=== PATIENT | female | born 1955 | race American Indian/Alaskan Native ===

== ENCOUNTER 2016-06-25 10:51 | Outpatient (CLI) | payer OTHER ==
--- NOTE | 2016-06-25 13:02 | XRay Report ---
Lumbar spine 3 views: History: Lumbar pain. Findings: Mild scoliosis lumbar spine with convexity to right. Normal height of vertebral bodies and intravertebral disc. Normal articular surfaces. No fracture. No paravertebral mass. Impression: No bony or articular abnormality lumbar spine.
--- NOTE | 2016-06-25 13:04 | XRay Report ---
Bilateral shoulder: History: Shoulder pain. Findings: There is mild arthritic changes noted at the glenohumeral joint and a.c. joint bilaterally. No fracture dislocation or soft tissue calcification. 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
== END 2016-06-25 10:52 | disposition home or self-care (01) ==
LOC: XRAY 10:51
PROVIDERS: ATTEND Internal Medicine
DX: E11.9 Type 2 diabetes mellitus without complications (principal); I10 Essential (primary) hypertension; E78.00 Pure hypercholesterolemia, unspecified; M41.86 Other forms of scoliosis, lumbar region; H26.9 Unspecified cataract; M25.512 Pain in left shoulder; M25.511 Pain in right shoulder; R53.83 Other fatigue
CPT/HCPCS: 72100

== ENCOUNTER 2017-08-12 16:08 | Inpatient (IN) | payer BC, OTHER ==
[2017-08-12] MEDS ORDERED: ASPIRIN PO ONE (16:20)
[2017-08-12 16:39] LABS: Basophils % (Auto) 0.3 % (0.0-1.8); Hematocrit 32.8 % (30.3-42.9); Hemoglobin 10.9 gm/dl (10.1-14.3); Lymphocytes # (Auto) 1.5 K/mm3 (1.2-5.4); Lymphocytes % (Auto) 10.2 % (13.4-35.0); Mean Corpuscular HGB Conc 33 % (30-34); Mean Corpuscular Hemoglobin 29 pg (28-32); Mean Corpuscular Volume 86 fl (79-97); Monocytes # (Auto) 0.7 K/mm3 (0.0-0.8); Monocytes % (Auto) 4.8 % (0.0-7.3); Platelet Count 342 K/mm3 (140-440); Red Blood Count 3.81 M/mm3 (3.65-5.03); Red Cell Distribution Width 14.7 % (13.2-15.2)
[2017-08-12] MEDS ORDERED: ZOFRAN ODT ONE (16:39)
[2017-08-12] MEDS ORDERED: CATAPRES ONE (16:39)
[2017-08-12] MEDS ORDERED: CATAPRES PO ONE (16:41)
[2017-08-12] MEDS ORDERED: ZOFRAN ODT PO ONE (16:41)
[2017-08-12 16:48] LABS: Calcium 9.7 mg/dL (8.4-10.2)
[2017-08-12] MEDS ORDERED: MORPHINE IV ONE (18:28)
[2017-08-12] MEDS ORDERED: ZOFRAN IV ONE ×2 (18:28→19:58)
[2017-08-12] MEDS ORDERED: NITRO-BID 2% TP ONE (18:29)
[2017-08-12] MEDS ORDERED: CARDENE 50 MG in NACL 0.9% 250ML 230 ML IV SCH (19:30)
--- NOTE | 2017-08-12 19:43 | XRay Report ---
FINAL REPORT PROCEDURE: XR CHEST ROUTINE 2V TECHNIQUE: PA and lateral chest radiographs were obtained. CPT 42728 HISTORY: Chest pain. COMPARISON: No prior studies are available for comparison. FINDINGS: Heart: The heart size is top-normal. Mediastinum/Vessels: Aortic tortuosity. Lungs/Pleural space: Mild hyperinflation. Eventration of the medial right diaphragm. Bony thorax: Mild osteopenia with degenerative changes of the spine. Other: Cholecystectomy clips. IMPRESSION: Heart size top-normal. Aortic tortuosity. No radiographic evidence of acute cardiopulmonary disease. Hyperinflation suggests obstructive physiology.
--- NOTE | 2017-08-12 22:10 | Nuclear Medicine Report ---
FINAL REPORT PROCEDURE: NM LUNG SCAN PERF/VENT TECHNIQUE: 5.0 mCi Tc-99m MAA was injected IV for pulmonary perfusion imaging in multiple projections. 15.0 mCi Xe 133 gas was inhaled for pulmonary ventilation imaging in multiple projections. I HISTORY: CP elevated ddimer, renal failure COMPARISON: Chest x-ray August 12, 2017 FINDINGS: Perfusion: No defects . Ventilation: No defects . IMPRESSION: Normal Examination
[2017-08-12 22:29] LABS: Bacteria,Urine 1+ /HPF (Negative); Bilirubin,Urine NEG (Negative); Blood,Urine NEG (Negative); Color,Urine Red (Yellow); Mucus,Urine FEW /HPF; Triple Phosphate Crystal,Urine 1+; Urobilinogen,Urine < 2.0 mg/dL (<2.0)
--- NOTE | 2017-08-12 22:30 | Emergency Department Report ---
ED Chest Pain HPI - General Chief Complaint: Chest Pain Stated Complaint: CHEST PAIN Time Seen by Provider: 08/12/17 18:09 Source: patient Mode of arrival: Ambulatory Limitations: No Limitations - History of Present Illness Initial Comments: Patient is a 62-year-old [place] female who is presenting with chest pain. Patient states her upper sternal radiating into her neck has pressure has been present constantly for 2 days. Patient states there is nausea associated with this she's vomited multiple times with diaphoresis. Patient states that she has been out of her blood pressure medicines for several days. Patient denies any fever chills cough diarrhea. Patient has a history of diabetes hypertension as well as high cholesterol. Severity scale (0 -10): 8 Quality: tightness Improves With: nothing Worsens With: nothing re: nausea, vomting, diaphoresis, dyspnea Other Symptoms: denies: cough, fever, syncope, rash, acid taste in mouth, leg swelling, palpitations - Related Data Previous Rx's Medication Instructions Recorded Last Taken Type Atenolol [Tenormin] 25 mg PO DAILY #30 tablet 02/25/14 Unknown Rx Cyclobenzaprine [Flexeril 10 MG 10 mg PO TID PRN #30 tablet 02/25/14 Unknown Rx TAB] Ibuprofen [Motrin 600 MG tab] 600 mg PO Q8H PRN #30 tablet 02/25/14 Unknown Rx Lisinopril/Hydrochlorothiazide 1 tab PO QDAY #30 tablet 02/25/14 Unknown Rx [Zestoretic 20-25 mg] Metformin HCl [Fortamet ER] 1,000 mg PO QDAY #30 tab.er.24 02/25/14 Unknown Rx glyBURIDE [Diabeta] 5 mg PO BID #60 tablet 02/25/14 Unknown Rx Allergies Allergy/AdvReac Type Severity Reaction Status Date / Time No Known Allergies Allergy Verified 02/01/16 16:51 Heart Score - HEART Score History: Moderately suspicious EKG: Non-specific Age: 45-65 Risk factors: > 3 risk factors or hx of atherosclerotic disease Troponin: < normal limit HEART Score: 5 ED Review of Systems ROS: Stated complaint: CHEST PAIN Other details as noted in HPI Comment: All other systems reviewed and negative ED Past Medical Hx - Past Medical History Hx Hypertension: Yes Hx Diabetes: Yes Additional medical history: High cholesterol, Chronic back pain - Surgical History Hx Cholecystectomy: Yes - Social History Smoking Status: Never Smoker Substance Use Type: None - Medications Home Medications: Home Medications Medication Instructions Recorded Confirmed Last Taken Type Atenolol [Tenormin] 25 mg PO DAILY #30 tablet 02/25/14 Unknown Rx Cyclobenzaprine [Flexeril 10 MG 10 mg PO TID PRN #30 tablet 02/25/14 Unknown Rx TAB] Ibuprofen [Motrin 600 MG tab] 600 mg PO Q8H PRN #30 tablet 02/25/14 Unknown Rx Lisinopril/Hydrochlorothiazide 1 tab PO QDAY #30 tablet 02/25/14 Unknown Rx [Zestoretic 20-25 mg] Metformin HCl [Fortamet ER] 1,000 mg PO QDAY #30 tab.er.24 02/25/14 Unknown Rx glyBURIDE [Diabeta] 5 mg PO BID #60 tablet 02/25/14 Unknown Rx ED Physical Exam - General Limitations: No Limitations General appearance: alert, in distress - Head Head exam: Present: atraumatic, normocephalic - Eye Eye exam: Present: normal appearance - ENT ENT exam: Present: mucous membranes moist - Neck Neck exam: Present: normal inspection - Respiratory Respiratory exam: Present: normal lung sounds bilaterally. Absent: respiratory distress, wheezes, rales, rhonchi - Cardiovascular Cardiovascular Exam: Present: normal rhythm, tachycardia. Absent: systolic murmur, diastolic murmur, rubs, gallop - GI/Abdominal GI/Abdominal exam: Present: soft, normal bowel sounds. Absent: distended, tenderness, guarding, rebound - Extremities Exam Extremities exam: Present: normal inspection - Back Exam Back exam: Present: normal inspection - Neurological Exam Neurological exam: Present: alert, oriented X3 - Psychiatric Psychiatric exam: Present: normal affect, normal mood - Skin Skin exam: Present: warm, dry, intact, normal color. Absent: rash ED Course Vital Signs 08/12/17 08/12/17 08/12/17 16:17 16:56 19:08 Temperature 98.9 F Pulse Rate 130 H 130 H Respiratory 20 20 Rate Blood Pressure 212/117 212/117 O2 Sat by Pulse 98 Oximetry 08/12/17 19:14 Temperature Pulse Rate Respiratory 20 Rate Blood Pressure O2 Sat by Pulse 100 Oximetry HERRERA score - Herrera Score Age > 65: (0) No Aspirin use within the Past 7 Days: (0) No 3 or more CAD Risk Factors: (1) Yes 2 or more Angina events in past 24 hrs: (1) Yes Known CAD with more than 50% Stenosis: (0) No Elevated Cardiac Markers: (0) No ST Deviation Greater than 0.5mm: (0) No HERRERA Score: 2 ED Medical Decision Making - Lab Data Result diagrams: 08/12/17 16:23 08/12/17 16:23 Lab Results 08/12/17 08/12/17 08/12/17 Range/Units 16:23 16:23 16:23 WBC 14.2 H (4.5-11.0) K/mm3 RBC 3.81 (3.65-5.03) M/mm3 Hgb 10.9 (10.1-14.3) gm/dl Hct 32.8 (30.3-42.9) % MCV 86 (79-97) fl MCH 29 (28-32) pg MCHC 33 (30-34) % RDW 14.7 (13.2-15.2) % Plt Count 342 (140-440) K/mm3 Lymph % (Auto) 10.2 L (13.4-35.0) % [place] % (Auto) 4.8 (0.0-7.3) % Eos % (Auto) 0.0 (0.0-4.3) % Baso % (Auto) 0.3 (0.0-1.8) % Lymph # 1.5 (1.2-5.4) K/mm3 [place] # 0.7 (0.0-0.8) K/mm3 Eos # 0.0 (0.0-0.4) K/mm3 Baso # 0.0 (0.0-0.1) K/mm3 Seg Neutrophils % 84.7 H (40.0-70.0) % Seg Neutrophils # 12.0 H (1.8-7.7) K/mm3 D-Dimer (0-234) ng/mlDDU Sodium 140 (137-145) mmol/L Potassium 3.8 (3.6-5.0) mmol/L Chloride 94.6 L (98-107) mmol/L Carbon Dioxide 22 (22-30) mmol/L Anion Gap 27 mmol/L BUN 49 H (7-17) mg/dL Creatinine 2.3 H (0.7-1.2) mg/dL Estimated GFR 26 ml/min BUN/Creatinine Ratio 21 % Glucose 211 H (65-100) mg/dL POC Glucose (70-105) Calcium 9.7 (8.4-10.2) mg/dL Total Bilirubin 0.50 (0.1-1.2) mg/dL AST 16 (5-40) units/L ALT 9 (7-56) units/L Alkaline Phosphatase 81 (35-129) units/L Troponin T 0.025 (0.00-0.029) ng/mL NT-Pro-B Natriuret Pep (0-900) pg/mL Total Protein 8.5 H (6.3-8.2) g/dL Albumin 4.0 (3.9-5) g/dL Albumin/Globulin Ratio 0.9 % Lipase 26 (13-60) units/L Urine Bilirubin (Negative) Urine RBC (Auto) (0.0-6.0) /HPF U Epithel Cells (Auto) (0-13.0) /HPF 08/12/17 08/12/17 08/12/17 Range/Units 16:23 16:27 18:23 WBC (4.5-11.0) K/mm3 RBC (3.65-5.03) M/mm3 Hgb (10.1-14.3) gm/dl Hct (30.3-42.9) % MCV (79-97) fl MCH (28-32) pg MCHC (30-34) % RDW (13.2-15.2) % Plt Count (140-440) K/mm3 Lymph % (Auto) (13.4-35.0) % [place] % (Auto) (0.0-7.3) % Eos % (Auto) (0.0-4.3) % Baso % (Auto) (0.0-1.8) % Lymph # (1.2-5.4) K/mm3 [place] # (0.0-0.8) K/mm3 Eos # (0.0-0.4) K/mm3 Baso # (0.0-0.1) K/mm3 Seg Neutrophils % (40.0-70.0) % Seg Neutrophils # (1.8-7.7) K/mm3 D-Dimer 1523.90 H (0-234) ng/mlDDU Sodium (137-145) mmol/L Potassium (3.6-5.0) mmol/L Chloride (98-107) mmol/L Carbon Dioxide (22-30) mmol/L Anion Gap mmol/L BUN (7-17) mg/dL Creatinine (0.7-1.2) mg/dL Estimated GFR ml/min BUN/Creatinine Ratio % Glucose (65-100) mg/dL POC Glucose 199 H (70-105) Calcium (8.4-10.2) mg/dL Total Bilirubin (0.1-1.2) mg/dL AST (5-40) units/L ALT (7-56) units/L Alkaline Phosphatase (35-129) units/L Troponin T (0.00-0.029) ng/mL NT-Pro-B Natriuret Pep 1760 H (0-900) pg/mL Total Protein (6.3-8.2) g/dL Albumin (3.9-5) g/dL Albumin/Globulin Ratio % Lipase (13-60) units/L Urine Bilirubin (Negative) Urine RBC (Auto) (0.0-6.0) /HPF U Epithel Cells (Auto) (0-13.0) /HPF 08/12/17 08/12/17 Range/Units 19:12 22:00 WBC (4.5-11.0) K/mm3 RBC (3.65-5.03) M/mm3 Hgb (10.1-14.3) gm/dl Hct (30.3-42.9) % MCV (79-97) fl MCH (28-32) pg MCHC (30-34) % RDW (13.2-15.2) % Plt Count (140-440) K/mm3 Lymph % (Auto) (13.4-35.0) % [place] % (Auto) (0.0-7.3) % Eos % (Auto) (0.0-4.3) % Baso % (Auto) (0.0-1.8) % Lymph # (1.2-5.4) K/mm3 [place] # (0.0-0.8) K/mm3 Eos # (0.0-0.4) K/mm3 Baso # (0.0-0.1) K/mm3 Seg Neutrophils % (40.0-70.0) % Seg Neutrophils # (1.8-7.7) K/mm3 D-Dimer (0-234) ng/mlDDU Sodium (137-145) mmol/L Potassium (3.6-5.0) mmol/L Chloride (98-107) mmol/L Carbon Dioxide (22-30) mmol/L Anion Gap mmol/L BUN (7-17) mg/dL Creatinine (0.7-1.2) mg/dL Estimated GFR ml/min BUN/Creatinine Ratio % Glucose (65-100) mg/dL POC Glucose (70-105) Calcium (8.4-10.2) mg/dL Total Bilirubin (0.1-1.2) mg/dL AST (5-40) units/L ALT (7-56) units/L Alkaline Phosphatase (35-129) units/L Troponin T 0.023 (0.00-0.029) ng/mL NT-Pro-B Natriuret Pep (0-900) pg/mL Total Protein (6.3-8.2) g/dL Albumin (3.9-5) g/dL Albumin/Globulin Ratio % Lipase (13-60) units/L Urine Bilirubin Neg (Negative) Urine RBC (Auto) 2.0 (0.0-6.0) /HPF U Epithel Cells (Auto) < 1.0 (0-13.0) /HPF - EKG Data -: EKG Interpreted by Nh - EKG Data Interpretation: other (EKG shows sinus tachycardia 129 normal axis normal intervals no ST segment elevation or depressions there is evidence of LVH time of interpretation 1626) - Radiology Data Radiology results: report reviewed Chest x-ray shows no acute process patient's VQ scan shows low probability for PE - Medical Decision Making Patient is 62-year-old -[place] male female who is presenting with chest discomfort. Patient's pain was improved with morphine and Zofran and Nitropaste. Patient's blood pressure did drop significantly with the Cardene drip which was stopped. Patient's blood pressures at time of admission was 145 systolic. Patient states the nausea and the chest discomfort is improved but is still present and is around a 3 out of 10 in severity. Patient will be admitted to Dr. Penny with the hospitalist service. Critical Care Time: Yes Critical care time in (mins) excluding proc time.: 30 Critical care attestation.: If time is entered above; I have spent that time in minutes in the direct care of this critically ill patient, excluding procedure time. ED Disposition Clinical Impression: Hypertensive urgency, malignant Chest pain Qualifiers: Chest pain type: unspecified Qualified Code(s): R07.9 - Chest pain, unspecified Disposition: OP ADMIT IP TO THIS HOSP Is pt being admited?: Yes Does the pt Need Aspirin: No Condition: Stable Instructions: Chest Pain (ED) Referrals: PRIMARY CARE, [Primary Care Provider] - 3-5 Days
[2017-08-12 22:32] LABS: Protein,Urine >500 mg/dL (Negative)
--- NOTE | 2017-08-12 23:05 | History and Physical Report ---
History of Present Illness Date of examination: 08/12/17 History of present illness: 54-year-old lady with a history of hypertension, hyperlipidemia, diabetes comes emergency room with complaints of chest pain started yesterday. Pain started on the right side of the neck radiating down to the epigastric area, she describes as sharp, unable to say how long it lasted for, intensity 5/10. She state that pain is worse at rest, better with activity. Admits to nausea vomiting, no palpitation, shortness of breath, diaphoresis. She has not taken any medication in the last 3 days because she has been fasting Review of systems Constitutional: no weight loss, chills Ears, eyes, nose, mouth and throat: no nasal congestion, no nasal discharge, no sinus pressure, no vision change, no red eye. Neck: No neck pain or rigidity. Cardiovascular: no palpitations Respiratory: No cough, shortness of breath Gastrointestinal: no abdominal pain, hematochezia Genitourinary : no dysuria, frequency , no hematuria Musculoskeletal: no joint swelling or muscle ache Integumentary: no rash, no pruritis Neurological: no parathesias, no numbness, no focal weakness Endocrine: no cold or heat intolerance, no polyuria or polydipsia Hematologic/Lymphatic: no easy bruising, no easy bleeding, no gland swelling Allergic/Immunologic: no urticaria, no angioedema. PAST MEDICAL HISTORY: Hypertension, hyperlipidemia PAST SURGICAL HISTORY: Hysterectomy, hemorrhoidectomy SOCIAL HISTORY: Denies alcohol, tobacco, drugs FAMILY HISTORY: Hypertension Medications and Allergies Allergies Allergy/AdvReac Type Severity Reaction Status Date / Time No Known Allergies Allergy Verified 02/01/16 16:51 Home Medications Medication Instructions Recorded Confirmed Last Taken Type Atenolol [Tenormin] 25 mg PO DAILY #30 tablet 02/25/14 Unknown Rx Cyclobenzaprine [Flexeril 10 MG 10 mg PO TID PRN #30 tablet 02/25/14 Unknown Rx TAB] Ibuprofen [Motrin 600 MG tab] 600 mg PO Q8H PRN #30 tablet 02/25/14 Unknown Rx Lisinopril/Hydrochlorothiazide 1 tab PO QDAY #30 tablet 02/25/14 Unknown Rx [Zestoretic 20-25 mg] Metformin HCl [Fortamet ER] 1,000 mg PO QDAY #30 tab.er.24 09/25/14 Unknown Rx glyBURIDE [Diabeta] 5 mg PO BID #60 tablet 02/25/14 Unknown Rx Active Meds: Active Medications Nicardipine HCl 50 mg/ Sodium (Chloride) 250 mls @ 25 mls/hr IV TITR CASSIUS; Protocol Last Titration: 08/12/17 20:40 Dose: 0 mg/hr, 0 mls/hr Exam - Physical Exam Narrative exam: Gen. appearance: Patient lying in bed, no apparent distress HEENT: Normocephalic, atraumatic, pupils equally round and reactive to light, extraocular movement intact, and no sclericterus,. No JVD or thyromegaly or nodule,neck supple, no carotid bruit ,mucous membranes moist, no exudate or erythema Heart: S1, S2, regular rate and rhythm Lungs: Clear to auscultation bilaterally, breathing comfortable Abdomen: Positive bowel sounds, nontender, nondistended, no organomegaly Extremity: No edema, cyanosis, clubbing Skin: No rash, nodules, warm, dry Neuro: Oriented 3, cranial nerves II-12 intact, speech is fluent, motor and sensory intact - Constitutional Vitals: Temp Pulse Resp BP Pulse Ox 98.9 F 130 H 20 212/117 100 08/12/17 16:17 08/12/17 16:56 08/12/17 19:14 08/12/17 16:56 08/12/17 19:14 Results - Labs CBC & Chem 7: 08/12/17 16:23 08/12/17 16:23 Labs: Abnormal lab results 08/12/17 08/12/17 08/12/17 Range/Units 16:23 16:23 16:23 WBC 14.2 H (4.5-11.0) K/mm3 Lymph % (Auto) 10.2 L (13.4-35.0) % Seg Neutrophils % 84.7 H (40.0-70.0) % Seg Neutrophils # 12.0 H (1.8-7.7) K/mm3 D-Dimer (0-234) ng/mlDDU Chloride 94.6 L (98-107) mmol/L BUN 49 H (7-17) mg/dL Creatinine 2.3 H (0.7-1.2) mg/dL Glucose 211 H (65-100) mg/dL POC Glucose (70-105) NT-Pro-B Natriuret Pep 1760 H (0-900) pg/mL Total Protein 8.5 H (6.3-8.2) g/dL Urine pH (5.0-7.0) 08/12/17 08/12/17 08/12/17 Range/Units 16:27 18:23 22:00 WBC (4.5-11.0) K/mm3 Lymph % (Auto) (13.4-35.0) % Seg Neutrophils % (40.0-70.0) % Seg Neutrophils # (1.8-7.7) K/mm3 D-Dimer 1523.90 H (0-234) ng/mlDDU Chloride (98-107) mmol/L BUN (7-17) mg/dL Creatinine (0.7-1.2) mg/dL Glucose (65-100) mg/dL POC Glucose 199 H (70-105) NT-Pro-B Natriuret Pep (0-900) pg/mL Total Protein (6.3-8.2) g/dL Urine pH 8.0 H (5.0-7.0) - Imaging and Cardiology EKG: image reviewed Chest x-ray: image reviewed Assessment and Plan VQ negative for pulmonary emboli Assessment Hypertensive urgency Chest pain Renal failure, unclear if there is an acute component Hyperlipidemia Diabetes type 2 Plan Admit to medicine Check cardic enzymes, stress test IV hydralazine, morphine, DVT prophylaxis Hold lisinopril, hydrochlorothiazide, start IV fluids Check fingersticks and initiate insulin sliding scale
[2017-08-12] MEDS ORDERED: ZOFRAN IV PRN (23:07)
[2017-08-12] MEDS ORDERED: TYLENOL PO PRN (23:07)
[2017-08-12] MEDS ORDERED: SODIUM CHLORIDE FLUSH SYRINGE 10 ML IV PRN (23:07)
[2017-08-12] MEDS ORDERED: NACL 0.45% 1000 ML 1,000 ML IV SCH (23:45)
[2017-08-12 23:59] LABS: Creatine Kinase MB 2.1 ng/mL (0.0-4.0)
[2017-08-13] MEDS ORDERED: ZOFRAN ONE (00:11)
[2017-08-13] MEDS ORDERED: MORPHINE ONE (00:15)
[2017-08-13] MEDS: MORPHINE IV PRN ×3 (00:18→19:42)
[2017-08-13] MEDS ORDERED: D50W (25GM) Syringe IV PRN ×2 (01:04→16:42)
[2017-08-13 05:41] LABS: Basophils # (Auto) 0.1 K/mm3 (0.0-0.1); Basophils % (Auto) 0.6 % (0.0-1.8); Hematocrit 29.9 % (30.3-42.9); Hemoglobin 9.8 gm/dl (10.1-14.3); Lymphocytes # (Auto) 1.5 K/mm3 (1.2-5.4); Lymphocytes % (Auto) 10.9 % (13.4-35.0); Mean Corpuscular HGB Conc 33 % (30-34); Mean Corpuscular Hemoglobin 28 pg (28-32); Mean Corpuscular Volume 86 fl (79-97); Monocytes # (Auto) 0.9 K/mm3 (0.0-0.8); Monocytes % (Auto) 6.5 % (0.0-7.3); Platelet Count 293 K/mm3 (140-440); Red Cell Distribution Width 14.6 % (13.2-15.2)
[2017-08-13 05:58] LABS: Calcium 9.2 mg/dL (8.4-10.2)
[2017-08-13 06:04] LABS: Creatine Kinase MB 1.8 ng/mL (0.0-4.0)
[2017-08-13 06:48] LABS: Chol/HDL Ratio 4.9 %
[2017-08-13] MEDS ORDERED: DIABETA PO SCH (08:00)
[2017-08-13] MEDS: HumaLOG SUB-Q SCH ×4 (08:00→22:40)
[2017-08-13] MEDS: LOVENOX SUB-Q SCH (11:41)
[2017-08-13] MEDS: TENORMIN PO SCH (11:41)
[2017-08-13] MEDS: APRESOLINE IV PRN (16:31)
[2017-08-13] MEDS: ZOFRAN IV PRN ×2 (16:31→22:38)
[2017-08-13] MEDS: PROTONIX IV SCH (19:42)
[2017-08-13] MEDS: LANTUS SUB-Q SCH (22:38)
[2017-08-13] MEDS: SODIUM CHLORIDE FLUSH SYRINGE 10 ML IV SCH ×2 (22:39→22:40)
--- NOTE | 2017-08-13 23:14 | XRay Report ---
FINAL REPORT PROCEDURE: XR ABDOMEN 1V AP TECHNIQUE: Abdominal radiograph, single supine AP view. HISTORY: gastroenteritis, ?sbo COMPARISON: No prior studies are available for comparison. FINDINGS: Bowel gas pattern:Nonobstructive. Masses or calcifications:There is previous cholecystectomy. Bony structures:No significant abnormality. Other:None. IMPRESSION: No acute abnormality
[2017-08-13 23:23] LABS: Bacteria,Urine 3+ /HPF (Negative); Bilirubin,Urine NEG (Negative); Blood,Urine NEG (Negative); Color,Urine Red (Yellow); Mucus,Urine 1+ /HPF; Urobilinogen,Urine < 2.0 mg/dL (<2.0)
[2017-08-13 23:29] LABS: Creatinine,Urine 142.1 mg/dL (0.1-20.0)
--- NOTE | 2017-08-14 05:22 | Progress Note ---
Assessment and Plan Assessment and plan: 54-year-old lady with a history of hypertension, hyperlipidemia, diabetes comes emergency room with complaints of chest pain started yesterday. Pain started on the right side of the neck radiating down to the epigastric area, she describes as sharp, unable to say how long it lasted for, intensity 5/10. She state that pain is worse at rest, better with activity. Admits to nausea vomiting, no palpitation, shortness of breath, diaphoresis. She has not taken any medication in the last 3 days because she has been fasting Hypertensive urgency * Improving, CONTINUE CURRENT THERAPY Gastroenteritis with Persistent nausea and vomiting * GI consult, Antiemetic, PPI Chest pain * Secondary to GERD, likely as a result of persistent vomiting, await cardiac work up. will start PPI via IV Andrey * Likely secondary to vasomotor nephropathy Hyperlipidemia * Statin Therapy Hypokalemia * Replace Diabetes type 2 * Insulin slidding scale DVT/GI prophy Plan discussed with the patient in detail History Interval history: Patient seen and examined, remained very nauseous with peristent vomiting. Reports ongoing vomiting since saturday prior to admission and a burning sensation in the epigastric region Hospitalist Physical - Physical exam Narrative exam: Narrative exam: Gen. appearance: Patient lying in bed, no apparent distress but uncomfortable appearing HEENT: Normocephalic, atraumatic, pupils equally round and reactive to light, extraocular movement intact, and no sclericterus,. No JVD or thyromegaly or nodule,neck supple, no carotid bruit ,mucous membranes moist, no exudate or erythema Heart: S1, S2, regular rate and rhythm Lungs: Clear to auscultation bilaterally, breathing comfortable Abdomen: Positive bowel sounds, nontender, nondistended, no organomegaly Extremity: No edema, cyanosis, clubbing Skin: No rash, nodules, warm, dry Neuro: Oriented 3, cranial nerves II-12 intact, speech is fluent, motor and sensory intact - Constitutional Vitals: Temp Pulse Resp BP Pulse Ox 98.7 F 95 H 16 134/86 98 08/14/17 00:00 08/14/17 00:00 08/14/17 00:00 08/14/17 00:06 08/14/17 00:00 Results - Labs CBC & Chem 7: 08/14/17 13:22 08/14/17 13:22 Labs: Laboratory Last Values WBC 13.6 K/mm3 (4.5-11.0) H 08/13/17 05:25 RBC 3.50 M/mm3 (3.65-5.03) L 08/13/17 05:25 Hgb 9.8 gm/dl (10.1-14.3) L 08/13/17 05:25 Hct 29.9 % (30.3-42.9) L 08/13/17 05:25 MCV 86 fl (79-97) 08/13/17 05:25 MCH 28 pg (28-32) 08/13/17 05:25 MCHC 33 % (30-34) 08/13/17 05:25 RDW 14.6 % (13.2-15.2) 08/13/17 05:25 Plt Count 293 K/mm3 (140-440) 08/13/17 05:25 Lymph % (Auto) 10.9 % (13.4-35.0) L 08/13/17 05:25 [place] % (Auto) 6.5 % (0.0-7.3) 08/13/17 05:25 Eos % (Auto) 0.0 % (0.0-4.3) 08/13/17 05:25 Baso % (Auto) 0.6 % (0.0-1.8) 08/13/17 05:25 Lymph # 1.5 K/mm3 (1.2-5.4) 08/13/17 05:25 [place] # 0.9 K/mm3 (0.0-0.8) H 08/13/17 05:25 Eos # 0.0 K/mm3 (0.0-0.4) 08/13/17 05:25 Baso # 0.1 K/mm3 (0.0-0.1) 08/13/17 05:25 Seg Neutrophils % 82.0 % (40.0-70.0) H 08/13/17 05:25 Seg Neutrophils # 11.1 K/mm3 (1.8-7.7) H 08/13/17 05:25 D-Dimer 1523.90 ng/mlDDU (0-234) H 08/12/17 18:23 Sodium 143 mmol/L (137-145) 08/13/17 05:25 Potassium 3.5 mmol/L (3.6-5.0) L 08/13/17 05:25 Chloride 100.7 mmol/L (98-107) 08/13/17 05:25 Carbon Dioxide 26 mmol/L (22-30) 08/13/17 05:25 Anion Gap 20 mmol/L 08/13/17 05:25 BUN 55 mg/dL (7-17) H 08/13/17 05:25 Creatinine 2.5 mg/dL (0.7-1.2) H 08/13/17 05:25 Estimated GFR 24 ml/min 08/13/17 05:25 BUN/Creatinine Ratio 22 % 08/13/17 05:25 Glucose 164 mg/dL (65-100) H 08/13/17 05:25 POC Glucose 146 (70-105) H 08/13/17 21:56 Calcium 9.2 mg/dL (8.4-10.2) 08/13/17 05:25 Total Bilirubin 0.50 mg/dL (0.1-1.2) 08/12/17 16:23 AST 16 units/L (5-40) 08/12/17 16:23 ALT 9 units/L (7-56) 08/12/17 16:23 Alkaline Phosphatase 81 units/L (35-129) 08/12/17 16:23 Total Creatine Kinase 138 units/L (30-135) H 08/13/17 05:25 CK-MB (CK-2) 1.8 ng/mL (0.0-4.0) 08/13/17 05:25 CK-MB (CK-2) Rel Index 1.3 (0-4) 08/13/17 05:25 Troponin T 0.031 ng/mL (0.00-0.029) H 08/13/17 05:25 NT-Pro-B Natriuret Pep 1760 pg/mL (0-900) H 08/12/17 16:23 Total Protein 8.5 g/dL (6.3-8.2) H 08/12/17 16:23 Albumin 4.0 g/dL (3.9-5) 08/12/17 16:23 Albumin/Globulin Ratio 0.9 % 08/12/17 16:23 Triglycerides 124 mg/dL (2-149) 08/13/17 05:25 Cholesterol 250 mg/dL (50-199) H 08/13/17 05:25 LDL Cholesterol Direct 173 mg/dL (50-130) H 08/13/17 05:25 HDL Cholesterol 51 mg/dL (40-59) 08/13/17 05:25 Cholesterol/HDL Ratio 4.90 % 08/13/17 05:25 Lipase 26 units/L (13-60) 08/12/17 16:23 Urine Color Red (Yellow) 08/13/17 23:00 Urine Turbidity Cloudy (Clear) 08/13/17 23:00 Urine pH 6.0 (5.0-7.0) 08/13/17 23:00 Ur Specific [place] 1.015 (1.003-1.030) 08/13/17 23:00 Urine Protein 100 mg/dl mg/dL (Negative) 08/13/17 23:00 Urine Glucose (UA) Neg mg/dL (Negative) 08/13/17 23:00 Urine Ketones Neg mg/dL (Negative) 08/13/17 23:00 Urine Blood Neg (Negative) 08/13/17 23:00 Urine Nitrite Neg (Negative) 08/13/17 23:00 Urine Bilirubin Neg (Negative) 08/13/17 23:00 Urine Urobilinogen < 2.0 mg/dL (<2.0) 08/13/17 23:00 Ur Leukocyte Esterase Mod (Negative) 08/13/17 23:00 Urine WBC (Auto) 24.0 /HPF (0.0-6.0) H 08/13/17 23:00 Urine RBC (Auto) 1.0 /HPF (0.0-6.0) 08/13/17 23:00 U Epithel Cells (Auto) 6.0 /HPF (0-13.0) 08/13/17 23:00 Urine Bacteria (Auto) 3+ /HPF (Negative) 08/13/17 23:00 Triple Phos Crystals 1+ 08/12/17 22:00 Urine Mucus 1+ /HPF 08/13/17 23:00 Urine Creatinine 142.1 mg/dL (0.1-20.0) H 08/13/17 23:00 Urine Sodium 15 mmol/L 08/13/17 23:00 Urine Total Protein 314 mg/dL (5-11.8) H 08/13/17 23:00
[2017-08-14] MEDS: HumaLOG SUB-Q SCH ×5 (07:30→21:38)
[2017-08-14] MEDS: ZOFRAN IV PRN (08:19)
--- NOTE | 2017-08-14 09:44 | Consultation ---
History of Present Illness - History of Present Illness Thank you for the consultation patient was evaluated today patient has been followed by Dr. Rivera never told to have any kidney disease My assessment and plan are as follows Renal failure moderate severity creatinine between 2.3-2.5 noted this admission , patient has multiple risk factors for underlying chronic kidney disease, patient to some degree appears to be prerenal she was also taking ibuprofen and lisinopril hydrochlorothiazide in outpatient setting, his hydration and close follow-up, she does have long-standing history of diabetes hypertension 15 years each with being overweight chronic NSAID use, I would not be surprised if she has underlying chronic kidney disease Will await the results of ultrasonogram counseling and education has been done regarding the severity of renal dysfunction. Agree with IV fluid normal saline at 1 25 mL an hour to follow, Patient was also having nausea and vomiting poor appetite, would be due to non- steroidal drug that she was taking She may have a competent of reversibility to monitor and follow Admitted with chest pain currently undergoing workup, this could be due to non- astride of drugs and reflux Hypokalemia noted 3.5 this admission, replace monitor and follow check migration as well, makes me worry about secondary hypertension here Will check abdelrahman and plasma renin level Hypertension: Currently well controlled between 115 to 134 systolic Proteinuria needs estimation rule out urinary tract infection current protein creatinine ratio suggestive off 2-1/2 g of protein in the urine, will definitely need to rule out infection first Hyperlipidemia current lipid profile shows a cholesterol of 250 LDL of 173 patient needs treatment change in diet lifestyle etc. Renal prognosis currently remains guarded upon discharge will need to follow-up in the office Order workup for renal failure including serologies labs ultrasonogram etc. We'll continue to follow and make recommendation from renal standpoint Medications and Allergies Allergies Allergy/AdvReac Type Severity Reaction Status Date / Time No Known Allergies Allergy Verified 02/01/16 16:51 Home Medications Medication Instructions Recorded Confirmed Last Taken Type Atenolol [Tenormin] 25 mg PO DAILY #30 tablet 02/25/14 Unknown Rx Cyclobenzaprine [Flexeril 10 MG 10 mg PO TID PRN #30 tablet 02/25/14 Unknown Rx TAB] Ibuprofen [Motrin 600 MG tab] 600 mg PO Q8H PRN #30 tablet 02/25/14 Unknown Rx Lisinopril/Hydrochlorothiazide 1 tab PO QDAY #30 tablet 02/25/14 Unknown Rx [Zestoretic 20-25 mg] Metformin HCl [Fortamet ER] 1,000 mg PO QDAY #30 tab.er.24 02/25/14 Unknown Rx glyBURIDE [Diabeta] 5 mg PO BID #60 tablet 02/25/14 Unknown Rx Active Meds: Active Medications Acetaminophen (Tylenol) 650 mg PO Q4H PRN PRN Reason: Pain MILD(1-3)/Fever >100.5/SEVERINO Atenolol (Tenormin) 25 mg PO DAILY COUNTS INCLUDE 234 BEDS AT THE [facility] Last Admin: 08/13/17 11:41 Dose: 25 mg Dextrose (D50w (25gm) Syringe) 50 ml IV PRN PRN PRN Reason: Hypoglycemia Dextrose (D50w (25gm) Syringe) 50 ml IV PRN PRN PRN Reason: Hypoglycemia Enoxaparin Sodium (Lovenox) 30 mg SUB-Q QDAY COUNTS INCLUDE 234 BEDS AT THE [facility] Last Admin: 08/13/17 11:41 Dose: 30 mg Hydralazine HCl (Apresoline) 5 mg IV Q6H PRN PRN Reason: Hypertension Last Admin: 08/13/17 16:31 Dose: 5 mg Sodium Chloride (Nacl 0.45% 1000 Ml) 1,000 mls @ 75 mls/hr IV DIRECT [place] Sodium Chloride (Nacl 0.9% 1000 Ml) 1,000 mls @ 125 mls/hr IV DIRECT COUNTS INCLUDE 234 BEDS AT THE [facility] Insulin Glargine (Lantus) 12 units SUB-Q QHS COUNTS INCLUDE 234 BEDS AT THE [facility] Last Admin: 08/13/17 22:38 Dose: 12 units Insulin Human Lispro (Humalog) 0 unit SUB-Q ACHS COUNTS INCLUDE 234 BEDS AT THE [facility]; Protocol Last Admin: 08/14/17 08:21 Dose: Not Given Morphine Sulfate (Morphine) 2 mg IV Q4H PRN PRN Reason: Pain, Moderate (4-6) Last Admin: 08/13/17 19:42 Dose: 2 mg Ondansetron HCl (Zofran) 4 mg IV Q4H PRN PRN Reason: Nausea And Vomiting Last Admin: 08/14/17 08:19 Dose: 4 mg Pantoprazole Sodium (Protonix) 40 mg IV QDAY COUNTS INCLUDE 234 BEDS AT THE [facility] Last Admin: 08/13/17 19:42 Dose: 40 mg Sodium Chloride (Sodium Chloride Flush Syringe 10 Ml) 10 ml IV BID COUNTS INCLUDE 234 BEDS AT THE [facility] Last Admin: 08/13/17 22:40 Dose: Not Given Sodium Chloride (Sodium Chloride Flush Syringe 10 Ml) 10 ml IV PRN PRN PRN Reason: LINE FLUSH Exam - Vital Signs Vital signs: Vital Signs Temp Pulse Resp BP Pulse Ox 98.9 F 130 H 20 212/117 98 08/12/17 16:17 08/12/17 16:17 08/12/17 16:17 08/12/17 16:17 08/12/17 16:17 Results - Lab Results 08/14/17 13:22 08/14/17 13:22 Most recent lab results Calcium 9.2 mg/dL (8.4-10.2) 08/13/17 05:25 Urine Creatinine 142.1 mg/dL (0.1-20.0) H 08/13/17 23:00 Urine Sodium 15 mmol/L 08/13/17 23:00 Urine Total Protein 314 mg/dL (5-11.8) H 08/13/17 23:00
[2017-08-14] MEDS: SODIUM CHLORIDE FLUSH SYRINGE 10 ML IV SCH ×2 (10:00→21:37)
[2017-08-14] MEDS: PROTONIX IV SCH (10:00)
[2017-08-14] MEDS: LOVENOX SUB-Q SCH ×2 (10:00→16:15)
--- NOTE | 2017-08-14 10:29 | Gastroenterology Consultation ---
<BEAR DE LA CRUZ - Last Filed: 08/14/17 10:38> History of Present Illness - Reason for Consult Consult date: 08/14/17 gastroenteritis with intractable N/V Requesting physician: LUIZ HAMMOND - History of Present Illness Patient is a 54 y/o female with PMH of HTN, HLD, and DM who presented to ED with c/o CP that radiates from her neck down to epigastric area with associated N/V x 3 days. VQ scan negative for PE. Stress test pending for today. This morning pt was resting in bed w/o acute distress. She reports continued mild CP and N/V x 2 episodes this am with non-bloody emesis. States epigastric pain has now improved. Denies fever, wt loss, SOB, heartburn, dysphagia, odynophagia, diarrhea, constipation, or signs of bleeding such as hematemesis, melena, or hematochezia. No hx of PUD. Takes occasional Ibuprofen at home. No previous EGD. Past History Past Medical History: diabetes, hypertension, hyperlipidemia Past Surgical History: hysterectomy, Other (hemorrhoidectomy) Social history: denies: smoking, alcohol abuse Family history: hypertension Medications and Allergies Allergies Allergy/AdvReac Type Severity Reaction Status Date / Time No Known Allergies Allergy Verified 02/01/16 16:51 Home Medications Medication Instructions Recorded Confirmed Last Taken Type Atenolol [Tenormin] 25 mg PO DAILY #30 tablet 02/25/14 Unknown Rx Cyclobenzaprine [Flexeril 10 MG 10 mg PO TID PRN #30 tablet 02/25/14 Unknown Rx TAB] Ibuprofen [Motrin 600 MG tab] 600 mg PO Q8H PRN #30 tablet 02/25/14 Unknown Rx Lisinopril/Hydrochlorothiazide 1 tab PO QDAY #30 tablet 02/25/14 Unknown Rx [Zestoretic 20-25 mg] Metformin HCl [Fortamet ER] 1,000 mg PO QDAY #30 tab.er.24 02/25/14 Unknown Rx glyBURIDE [Diabeta] 5 mg PO BID #60 tablet 02/25/14 Unknown Rx Active Meds: Active Medications Acetaminophen (Tylenol) 650 mg PO Q4H PRN PRN Reason: Pain MILD(1-3)/Fever >100.5/SEVERINO Atenolol (Tenormin) 25 mg PO DAILY [facility] Last Admin: 08/13/17 11:41 Dose: 25 mg Dextrose (D50w (25gm) Syringe) 50 ml IV PRN PRN PRN Reason: Hypoglycemia Dextrose (D50w (25gm) Syringe) 50 ml IV PRN PRN PRN Reason: Hypoglycemia Enoxaparin Sodium (Lovenox) 30 mg SUB-Q QDAY [facility] Last Admin: 08/13/17 11:41 Dose: 30 mg Hydralazine HCl (Apresoline) 5 mg IV Q6H PRN PRN Reason: Hypertension Last Admin: 08/13/17 16:31 Dose: 5 mg Sodium Chloride (Nacl 0.45% 1000 Ml) 1,000 mls @ 75 mls/hr IV DIRECT [place]SI[place] Sodium Chloride (Nacl 0.9% 1000 Ml) 1,000 mls @ 125 mls/hr IV DIRECT [facility] Insulin Glargine (Lantus) 12 units SUB-Q QHS [facility] Last Admin: 08/13/17 22:38 Dose: 12 units Insulin Human Lispro (Humalog) 0 unit SUB-Q ACHS [facility]; Protocol Last Admin: 08/14/17 08:21 Dose: Not Given Morphine Sulfate (Morphine) 2 mg IV Q4H PRN PRN Reason: Pain, Moderate (4-6) Last Admin: 08/13/17 19:42 Dose: 2 mg Ondansetron HCl (Zofran) 4 mg IV Q4H PRN PRN Reason: Nausea And Vomiting Last Admin: 08/14/17 08:19 Dose: 4 mg Pantoprazole Sodium (Protonix) 40 mg IV QDAY [facility] Last Admin: 08/13/17 19:42 Dose: 40 mg Sodium Chloride (Sodium Chloride Flush Syringe 10 Ml) 10 ml IV BID [facility] Last Admin: 08/13/17 22:40 Dose: Not Given Sodium Chloride (Sodium Chloride Flush Syringe 10 Ml) 10 ml IV PRN PRN PRN Reason: LINE FLUSH Review of Systems - Review of Systems All systems: negative Cardiovascular: chest pain Gastrointestinal: nausea, vomiting Exam - Constitutional Vital Signs: Temp Pulse Resp BP Pulse Ox 98.7 F 78 20 117/75 96 08/14/17 07:32 08/14/17 07:32 08/14/17 07:32 08/14/17 07:32 08/14/17 07:32 General appearance: no acute distress, well-nourished - EENT Eyes: PERRL, EOM intact ENT: hearing intact - Respiratory Respiratory: bilateral: CTA - Cardiovascular Rhythm: regular Heart Sounds: Present: S1 & S2 - Gastrointestinal General gastrointestinal: Present: soft, non-tender, non-distended, normal bowel sounds - Neurologic Neurological: alert and oriented x3 - Labs CBC & Chem 7: 08/13/17 05:25 08/13/17 05:25 Lab Results: Laboratory Results - last 24 hr 08/13/17 08/13/17 08/13/17 11:02 15:38 21:56 POC Glucose 156 H 158 H 146 H Urine Color Urine Turbidity Urine pH Ur Specific [place] Urine Protein Urine Glucose (UA) Urine Ketones Urine Blood Urine Nitrite Urine Bilirubin Urine Urobilinogen Ur Leukocyte Esterase Urine WBC (Auto) Urine RBC (Auto) U Epithel Cells (Auto) Urine Bacteria (Auto) Urine Mucus Urine Creatinine Urine Sodium Urine Total Protein 08/13/17 08/13/17 08/14/17 23:00 23:00 06:28 POC Glucose 105 Urine Color Red Urine Turbidity Cloudy Urine pH 6.0 Ur Specific [place] 1.015 Urine Protein 100 mg/dl Urine Glucose (UA) Neg Urine Ketones Neg Urine Blood Neg Urine Nitrite Neg Urine Bilirubin Neg Urine Urobilinogen < 2.0 Ur Leukocyte Esterase Mod Urine WBC (Auto) 24.0 H Urine RBC (Auto) 1.0 U Epithel Cells (Auto) 6.0 Urine Bacteria (Auto) 3+ Urine Mucus 1+ Urine Creatinine 142.1 H Urine Sodium 15 Urine Total Protein 314 H Assessment and Plan 1.intractable N/V 2.epigastric pain 3.CP -VQ negative for PE -abd x-ray negative -Tropoin trending up -stress test pending for today -clinically pt with continued N/V this am but reports epigastric pain has improved -recommend conservative management at this time, will consider EGD based on progress and cardiac evaluation results -continue PPI and supportive care -will follow <QUINTON SMALLS - Last Filed: 08/14/17 18:50> Medications and Allergies Active Meds: Active Medications Acetaminophen (Tylenol) 650 mg PO Q4H PRN PRN Reason: Pain MILD(1-3)/Fever >100.5/SEVERINO Atenolol (Tenormin) 25 mg PO DAILY [facility] Last Admin: 08/14/17 16:15 Dose: 25 mg Dextrose (D50w (25gm) Syringe) 50 ml IV PRN PRN PRN Reason: Hypoglycemia Enoxaparin Sodium (Lovenox) 30 mg SUB-Q QDAY [facility] Last Admin: 08/14/17 16:15 Dose: 30 mg Hydralazine HCl (Apresoline) 5 mg IV Q6H PRN PRN Reason: Hypertension Last Admin: 08/14/17 16:10 Dose: 5 mg Sodium Chloride (Nacl 0.9% 1000 Ml) 1,000 mls @ 125 mls/hr IV DIRECT [facility] Last Admin: 08/14/17 16:18 Dose: 125 mls/hr Insulin Glargine (Lantus) 12 units SUB-Q QHS [facility] Last Admin: 08/13/17 22:38 Dose: 12 units Insulin Human Lispro (Humalog) 0 unit SUB-Q ACHS [facility]; Protocol Last Admin: 08/14/17 17:44 Dose: 2 unit Morphine Sulfate (Morphine) 2 mg IV Q4H PRN PRN Reason: Pain, Moderate (4-6) Last Admin: 08/14/17 17:38 Dose: 2 mg Ondansetron HCl (Zofran) 4 mg IV Q4H PRN PRN Reason: Nausea And Vomiting Last Admin: 08/14/17 08:19 Dose: 4 mg Pantoprazole Sodium (Protonix) 40 mg IV QDAY [facility] Last Admin: 08/14/17 10:00 Dose: Not Given Sodium Chloride (Sodium Chloride Flush Syringe 10 Ml) 10 ml IV BID [facility] Last Admin: 08/14/17 10:00 Dose: 10 ml Sodium Chloride (Sodium Chloride Flush Syringe 10 Ml) 10 ml IV PRN PRN PRN Reason: LINE FLUSH Exam - Constitutional Vital Signs: Temp Pulse Resp BP Pulse Ox 98.4 F 91 H 18 181/117 98 08/14/17 15:35 08/14/17 15:35 08/14/17 15:35 08/14/17 16:10 08/14/17 15:35 - Labs CBC & Chem 7: 08/14/17 13:22 08/14/17 13:22 Lab Results: Laboratory Results - last 24 hr 08/13/17 08/13/17 08/13/17 15:38 21:56 23:00 WBC RBC Hgb Hct MCV MCH MCHC RDW Plt Count Lymph % (Auto) [place] % (Auto) Eos % (Auto) Baso % (Auto) Lymph # [place] # Eos # Baso # Seg Neutrophils % Seg Neutrophils # Sodium Potassium Chloride Carbon Dioxide Anion Gap BUN Creatinine Estimated GFR BUN/Creatinine Ratio Glucose POC Glucose 158 H 146 H Osmolality Uric Acid Calcium Urine Color Red Urine Turbidity Cloudy Urine pH 6.0 Ur Specific [place] 1.015 Urine Protein 100 mg/dl Urine Glucose (UA) Neg Urine Ketones Neg Urine Blood Neg Urine Nitrite Neg Urine Bilirubin Neg Urine Urobilinogen < 2.0 Ur Leukocyte Esterase Mod Urine WBC (Auto) 24.0 H Urine RBC (Auto) 1.0 U Epithel Cells (Auto) 6.0 Urine Bacteria (Auto) 3+ Urine Mucus 1+ Urine Creatinine Urine Sodium Urine Total Protein 08/13/17 08/14/17 08/14/17 23:00 06:28 13:22 WBC RBC Hgb Hct MCV MCH MCHC RDW Plt Count Lymph % (Auto) [place] % (Auto) Eos % (Auto) Baso % (Auto) Lymph # [place] # Eos # Baso # Seg Neutrophils % Seg Neutrophils # Sodium Potassium Chloride Carbon Dioxide Anion Gap BUN Creatinine Estimated GFR BUN/Creatinine Ratio Glucose POC Glucose 105 Osmolality 315 Uric Acid Calcium Urine Color Urine Turbidity Urine pH Ur Specific [place] Urine Protein Urine Glucose (UA) Urine Ketones Urine Blood Urine Nitrite Urine Bilirubin Urine Urobilinogen Ur Leukocyte Esterase Urine WBC (Auto) Urine RBC (Auto) U Epithel Cells (Auto) Urine Bacteria (Auto) Urine Mucus Urine Creatinine 142.1 H Urine Sodium 15 Urine Total Protein 314 H 08/14/17 08/14/17 08/14/17 13:22 13:22 13:22 WBC 10.5 RBC 3.86 Hgb 11.3 Hct 33.1 MCV 86 MCH 29 MCHC 34 RDW 14.5 Plt Count 298 Lymph % (Auto) 14.2 [place] % (Auto) 5.5 Eos % (Auto) 1.1 Baso % (Auto) 0.6 Lymph # 1.5 [place] # 0.6 Eos # 0.1 Baso # 0.1 Seg Neutrophils % 78.6 H Seg Neutrophils # 8.3 H Sodium 139 Potassium 3.6 Chloride 97.5 L Carbon Dioxide 29 Anion Gap 16 BUN 49 H Creatinine 2.3 H Estimated GFR 26 BUN/Creatinine Ratio 21 Glucose 173 H POC Glucose Osmolality Uric Acid 10.4 H Calcium 9.1 Urine Color Urine Turbidity Urine pH Ur Specific [place] Urine Protein Urine Glucose (UA) Urine Ketones Urine Blood Urine Nitrite Urine Bilirubin Urine Urobilinogen Ur Leukocyte Esterase Urine WBC (Auto) Urine RBC (Auto) U Epithel Cells (Auto) Urine Bacteria (Auto) Urine Mucus Urine Creatinine Urine Sodium Urine Total Protein 08/14/17 15:24 WBC RBC Hgb Hct MCV MCH MCHC RDW Plt Count Lymph % (Auto) [place] % (Auto) Eos % (Auto) Baso % (Auto) Lymph # [place] # Eos # Baso # Seg Neutrophils % Seg Neutrophils # Sodium Potassium Chloride Carbon Dioxide Anion Gap BUN Creatinine Estimated GFR BUN/Creatinine Ratio Glucose POC Glucose 151 H Osmolality Uric Acid Calcium Urine Color Urine Turbidity Urine pH Ur Specific [place] Urine Protein Urine Glucose (UA) Urine Ketones Urine Blood Urine Nitrite Urine Bilirubin Urine Urobilinogen Ur Leukocyte Esterase Urine WBC (Auto) Urine RBC (Auto) U Epithel Cells (Auto) Urine Bacteria (Auto) Urine Mucus Urine Creatinine Urine Sodium Urine Total Protein Assessment and Plan Pt presented with 2-3 d hx of pressure in neck or throat radiating into her abdomen, with N/V. She is now improving. No clear abd pain. Symptoms similar to CCX in 1980s. No other prior similar symptoms. No hx of HB. Would manage conservatively as she is improving, and f/u Cardiac evaluation.
[2017-08-14] MEDS ORDERED: LEXISCAN IV ONE ×2 (11:06→12:00)
[2017-08-14 14:05] LABS: Basophils # (Auto) 0.1 K/mm3 (0.0-0.1); Basophils % (Auto) 0.6 % (0.0-1.8); Eosinophils # (Auto) 0.1 K/mm3 (0.0-0.4); Eosinophils % (Auto) 1.1 % (0.0-4.3); Hematocrit 33.1 % (30.3-42.9); Hemoglobin 11.3 gm/dl (10.1-14.3); Lymphocytes # (Auto) 1.5 K/mm3 (1.2-5.4); Lymphocytes % (Auto) 14.2 % (13.4-35.0); Mean Corpuscular HGB Conc 34 % (30-34); Mean Corpuscular Hemoglobin 29 pg (28-32); Mean Corpuscular Volume 86 fl (79-97); Monocytes # (Auto) 0.6 K/mm3 (0.0-0.8); Monocytes % (Auto) 5.5 % (0.0-7.3); Platelet Count 298 K/mm3 (140-440); Red Blood Count 3.86 M/mm3 (3.65-5.03); Red Cell Distribution Width 14.5 % (13.2-15.2)
[2017-08-14 14:26] LABS: Calcium 9.1 mg/dL (8.4-10.2)
[2017-08-14] MEDS: APRESOLINE IV PRN (16:10)
[2017-08-14] MEDS: TENORMIN PO SCH (16:15)
[2017-08-14] MEDS: NACL 0.9% 1000 ML 1,000 ML IV SCH (16:18)
--- NOTE | 2017-08-14 17:18 | Ultrasound Report ---
FINAL REPORT EXAM: US RENAL BILAT HISTORY: PING TECHNIQUE: Ultrasound examination of the kidneys PRIORS: Abdomen radiograph 08/13/2017 FINDINGS: Visualized right kidney: 11.9 x 6.0 x 6.0 cm. Visualized left kidney: 12.9 x 5.2 x 5.7 cm. Renal cortical thickness is 13 mm on the right and 19 mm on the left. Focal lesion: None Calculus: None Hydronephrosis: None Perinephric fluid: None Urinary bladder: No evidence of focal abnormality in visible portion. Incidental finding of small left pleural effusion IMPRESSION: No sonographic evidence of renal pathology Incidental finding of small left pleural effusion
[2017-08-14] MEDS: MORPHINE IV PRN ×2 (17:38→21:35)
[2017-08-14] MEDS: LANTUS SUB-Q SCH (21:36)
--- NOTE | 2017-08-14 21:37 | Treadmill Report ---
STRESS TEST INDICATION FOR THE PROCEDURE: Chest pain. ORDERING PHYSICIAN: Dr. Mariaa Penny. FINDINGS: There is no scintigraphic evidence of myocardial ischemia. The left ventricle is normal in size and systolic function. The left ventricular ejection fraction is measured at 59%. Normal wall motion and wall thickening is noted on gated imaging. CONCLUSION: 1. Normal perfusion scan. 2. Low risk cardiovascular study associated with 1-year cardiovascular event, rate of less than 1%. JOB# [id number] ALEXANDRA/NTS
--- NOTE | 2017-08-14 22:33 | Progress Note ---
Assessment and Plan Assessment and plan: 54-year-old lady with a history of hypertension, hyperlipidemia, diabetes comes emergency room with complaints of chest pain started yesterday. Pain started on the right side of the neck radiating down to the epigastric area, she describes as sharp, unable to say how long it lasted for, intensity 5/10. She state that pain is worse at rest, better with activity. Admits to nausea vomiting, no palpitation, shortness of breath, diaphoresis. She has not taken any medication in the last 3 days because she has been fasting Hypertensive urgency * Improving, CONTINUE CURRENT THERAPY Gastroenteritis with Persistent nausea and vomiting * GI consult input noted. continue Antiemetic, PPI Chest pain * Secondary to GERD, likely as a result of persistent vomiting, await cardiac work up. will start PPI via IV Andrey * Likely secondary to vasomotor nephropathy Hyperlipidemia * Statin Therapy Hypokalemia * Replace Diabetes type 2 * Insulin slidding scale DVT/GI prophy Plan discussed with the patient in detail History Interval history: Patient seen and examined, still with vomiting. For stress test this am Hospitalist Physical - Physical exam Narrative exam: Narrative exam: Gen. appearance: Patient lying in bed, no apparent distress but uncomfortable appearing HEENT: Normocephalic, atraumatic, pupils equally round and reactive to light, extraocular movement intact, and no sclericterus,. No JVD or thyromegaly or nodule,neck supple, no carotid bruit ,mucous membranes moist, no exudate or erythema Heart: S1, S2, regular rate and rhythm Lungs: Clear to auscultation bilaterally, breathing comfortable Abdomen: Positive bowel sounds, nontender, nondistended, no organomegaly Extremity: No edema, cyanosis, clubbing Skin: No rash, nodules, warm, dry Neuro: Oriented 3, cranial nerves II-12 intact, speech is fluent, motor and sensory intact - Constitutional Vitals: Temp Pulse Resp BP Pulse Ox 98.4 F 96 H 20 112/68 97 08/14/17 15:35 08/14/17 19:10 08/14/17 21:35 08/14/17 19:10 08/14/17 19:10 Results - Labs CBC & Chem 7: 08/15/17 05:11 08/15/17 05:11 Labs: Laboratory Last Values WBC 10.5 K/mm3 (4.5-11.0) 08/14/17 13:22 RBC 3.86 M/mm3 (3.65-5.03) 08/14/17 13:22 Hgb 11.3 gm/dl (10.1-14.3) 08/14/17 13:22 Hct 33.1 % (30.3-42.9) 08/14/17 13:22 MCV 86 fl (79-97) 08/14/17 13:22 MCH 29 pg (28-32) 08/14/17 13:22 MCHC 34 % (30-34) 08/14/17 13:22 RDW 14.5 % (13.2-15.2) 08/14/17 13:22 Plt Count 298 K/mm3 (140-440) 08/14/17 13:22 Lymph % (Auto) 14.2 % (13.4-35.0) 08/14/17 13:22 [place] % (Auto) 5.5 % (0.0-7.3) 08/14/17 13:22 Eos % (Auto) 1.1 % (0.0-4.3) 08/14/17 13:22 Baso % (Auto) 0.6 % (0.0-1.8) 08/14/17 13:22 Lymph # 1.5 K/mm3 (1.2-5.4) 08/14/17 13:22 [place] # 0.6 K/mm3 (0.0-0.8) 08/14/17 13:22 Eos # 0.1 K/mm3 (0.0-0.4) 08/14/17 13:22 Baso # 0.1 K/mm3 (0.0-0.1) 08/14/17 13:22 Seg Neutrophils % 78.6 % (40.0-70.0) H 08/14/17 13:22 Seg Neutrophils # 8.3 K/mm3 (1.8-7.7) H 08/14/17 13:22 D-Dimer 1523.90 ng/mlDDU (0-234) H 08/12/17 18:23 Sodium 139 mmol/L (137-145) 08/14/17 13:22 Potassium 3.6 mmol/L (3.6-5.0) 08/14/17 13:22 Chloride 97.5 mmol/L (98-107) L 08/14/17 13:22 Carbon Dioxide 29 mmol/L (22-30) 08/14/17 13:22 Anion Gap 16 mmol/L 08/14/17 13:22 BUN 49 mg/dL (7-17) H 08/14/17 13:22 Creatinine 2.3 mg/dL (0.7-1.2) H 08/14/17 13:22 Estimated GFR 26 ml/min 08/14/17 13:22 BUN/Creatinine Ratio 21 % 08/14/17 13:22 Glucose 173 mg/dL (65-100) H 08/14/17 13:22 POC Glucose 146 (70-105) H 08/14/17 20:37 Osmolality 315 Mosm/kg 08/14/17 13:22 Uric Acid 10.4 mg/dL (3.5-7.6) H 08/14/17 13:22 Calcium 9.1 mg/dL (8.4-10.2) 08/14/17 13:22 Total Bilirubin 0.50 mg/dL (0.1-1.2) 08/12/17 16:23 AST 16 units/L (5-40) 08/12/17 16:23 ALT 9 units/L (7-56) 08/12/17 16:23 Alkaline Phosphatase 81 units/L (35-129) 08/12/17 16:23 Total Creatine Kinase 138 units/L (30-135) H 08/13/17 05:25 CK-MB (CK-2) 1.8 ng/mL (0.0-4.0) 08/13/17 05:25 CK-MB (CK-2) Rel Index 1.3 (0-4) 08/13/17 05:25 Troponin T 0.031 ng/mL (0.00-0.029) H 08/13/17 05:25 NT-Pro-B Natriuret Pep 1760 pg/mL (0-900) H 08/12/17 16:23 Total Protein 8.5 g/dL (6.3-8.2) H 08/12/17 16:23 Albumin 4.0 g/dL (3.9-5) 08/12/17 16:23 Albumin/Globulin Ratio 0.9 % 08/12/17 16:23 Triglycerides 124 mg/dL (2-149) 08/13/17 05:25 Cholesterol 250 mg/dL (50-199) H 08/13/17 05:25 LDL Cholesterol Direct 173 mg/dL (50-130) H 08/13/17 05:25 HDL Cholesterol 51 mg/dL (40-59) 08/13/17 05:25 Cholesterol/HDL Ratio 4.90 % 08/13/17 05:25 Lipase 26 units/L (13-60) 08/12/17 16:23 Urine Color Red (Yellow) 08/13/17 23:00 Urine Turbidity Cloudy (Clear) 08/13/17 23:00 Urine pH 6.0 (5.0-7.0) 08/13/17 23:00 Ur Specific [place] 1.015 (1.003-1.030) 08/13/17 23:00 Urine Protein 100 mg/dl mg/dL (Negative) 08/13/17 23:00 Urine Glucose (UA) Neg mg/dL (Negative) 08/13/17 23:00 Urine Ketones Neg mg/dL (Negative) 08/13/17 23:00 Urine Blood Neg (Negative) 08/13/17 23:00 Urine Nitrite Neg (Negative) 08/13/17 23:00 Urine Bilirubin Neg (Negative) 08/13/17 23:00 Urine Urobilinogen < 2.0 mg/dL (<2.0) 08/13/17 23:00 Ur Leukocyte Esterase Mod (Negative) 08/13/17 23:00 Urine WBC (Auto) 24.0 /HPF (0.0-6.0) H 08/13/17 23:00 Urine RBC (Auto) 1.0 /HPF (0.0-6.0) 08/13/17 23:00 U Epithel Cells (Auto) 6.0 /HPF (0-13.0) 08/13/17 23:00 Urine Bacteria (Auto) 3+ /HPF (Negative) 08/13/17 23:00 Triple Phos Crystals 1+ 08/12/17 22:00 Urine Mucus 1+ /HPF 08/13/17 23:00 Urine Creatinine 142.1 mg/dL (0.1-20.0) H 08/13/17 23:00 Urine Sodium 15 mmol/L 08/13/17 23:00 Urine Total Protein 314 mg/dL (5-11.8) H 08/13/17 23:00
[2017-08-15] MEDS: NACL 0.9% 1000 ML 1,000 ML IV SCH (05:51)
[2017-08-15 06:09] LABS: Hematocrit 30.5 % (30.3-42.9); Hemoglobin 9.9 gm/dl (10.1-14.3); Mean Corpuscular HGB Conc 32 % (30-34); Mean Corpuscular Hemoglobin 28 pg (28-32); Mean Corpuscular Volume 87 fl (79-97); Platelet Count 289 K/mm3 (140-440); Red Blood Count 3.51 M/mm3 (3.65-5.03)
[2017-08-15 06:31] LABS: Calcium 8.6 mg/dL (8.4-10.2)
[2017-08-15] MEDS: HumaLOG SUB-Q SCH ×2 (07:30→12:00)
--- NOTE | 2017-08-15 09:03 | Progress Note ---
Objective - Vital Signs Vital signs: Vital Signs - 12hr 08/14/17 08/14/17 08/15/17 21:35 22:00 00:18 Temperature 98.5 F Pulse Rate 92 H 91 H Respiratory 20 20 18 Rate Respiratory 20 Rate [abd] Blood Pressure 124/78 [Left] O2 Sat by Pulse 95 Oximetry 08/15/17 05:35 Temperature 97.6 F Pulse Rate 84 Respiratory 18 Rate Respiratory Rate [abd] Blood Pressure 110/64 [Left] O2 Sat by Pulse 98 Oximetry - Lab 08/15/17 05:11 08/15/17 05:11 Most recent lab results Calcium 8.6 mg/dL (8.4-10.2) 08/15/17 05:11 Urine Creatinine 142.1 mg/dL (0.1-20.0) H 08/13/17 23:00 Urine Sodium 15 mmol/L 08/13/17 23:00 Urine Total Protein 314 mg/dL (5-11.8) H 08/13/17 23:00
[2017-08-15] MEDS: TENORMIN PO SCH (09:45)
[2017-08-15] MEDS: PROTONIX IV SCH (09:45)
[2017-08-15] MEDS: LOVENOX SUB-Q SCH (09:45)
[2017-08-15] MEDS: APRESOLINE IV PRN (10:26)
--- NOTE | 2017-08-15 10:46 | Gastroenterology Progress Note ---
<BEAR DE LA CRUZMarcie - Last Filed: 08/15/17 10:43> Assessment and Plan 1.intractable N/V 2.epigastric pain 3.CP -VQ negative for PE -abd x-ray negative -stress test negative -clinically pt is feeling much better with abd pain and N/V now resolved -tolerating diet -no plans for an EGD at this time -pt is okay to be d/c per GI standpoint on PPI with a f/u clinic appt in 2-3 weeks -will sign off, please call if needed Subjective Date of service: 08/15/17 Principal diagnosis: intractable N/V Interval history: Patient resting in bed this am w/o distress. She report feeling much better with no abd pain and N/V now resolved. Tolerating diet. Objective - Constitutional Vitals: Temp Pulse Resp BP Pulse Ox 98.4 F 91 H 18 165/104 100 08/15/17 08:18 08/15/17 10:26 08/15/17 08:18 08/15/17 10:26 08/15/17 08:18 General appearance: no acute distress - Respiratory Respiratory: bilateral: CTA - Cardiovascular Rhythm: regular Heart Sounds: Present: S1 & S2 - Gastrointestinal General gastrointestinal: Present: soft, non-tender, non-distended, normal bowel sounds - Neurologic Neurological: alert and oriented x3 - Labs CBC & Chem 7: 08/15/17 05:11 08/15/17 05:11 Labs: Laboratory Results - last 24 hr 08/14/17 08/14/17 08/14/17 13:22 13:22 13:22 WBC 10.5 RBC 3.86 Hgb 11.3 Hct 33.1 MCV 86 MCH 29 MCHC 34 RDW 14.5 Plt Count 298 Lymph % (Auto) 14.2 [place] % (Auto) 5.5 Eos % (Auto) 1.1 Baso % (Auto) 0.6 Lymph # 1.5 [place] # 0.6 Eos # 0.1 Baso # 0.1 Seg Neutrophils % 78.6 H Seg Neutrophils # 8.3 H Sodium Potassium Chloride Carbon Dioxide Anion Gap BUN Creatinine Estimated GFR BUN/Creatinine Ratio Glucose POC Glucose Osmolality 315 Uric Acid 10.4 H Calcium 08/14/17 08/14/17 08/14/17 13:22 15:24 20:37 WBC RBC Hgb Hct MCV MCH MCHC RDW Plt Count Lymph % (Auto) [place] % (Auto) Eos % (Auto) Baso % (Auto) Lymph # [place] # Eos # Baso # Seg Neutrophils % Seg Neutrophils # Sodium 139 Potassium 3.6 Chloride 97.5 L Carbon Dioxide 29 Anion Gap 16 BUN 49 H Creatinine 2.3 H Estimated GFR 26 BUN/Creatinine Ratio 21 Glucose 173 H POC Glucose 151 H 146 H Osmolality Uric Acid Calcium 9.1 08/15/17 08/15/17 08/15/17 05:07 05:11 05:11 WBC 8.5 RBC 3.51 L Hgb 9.9 L Hct 30.5 MCV 87 MCH 28 MCHC 32 RDW 15.0 Plt Count 289 Lymph % (Auto) [place] % (Auto) Eos % (Auto) Baso % (Auto) Lymph # [place] # Eos # Baso # Seg Neutrophils % Seg Neutrophils # Sodium 139 Potassium 3.2 L Chloride 98.0 Carbon Dioxide 28 Anion Gap 16 BUN 48 H Creatinine 2.3 H Estimated GFR 26 BUN/Creatinine Ratio 21 Glucose 97 POC Glucose 93 Osmolality Uric Acid Calcium 8.6 <QUINTON SMALLS R - Last Filed: 08/15/17 14:52> Assessment and Plan Pt doing well. Advised to take daily PPI and f/u as outpatient. Objective - Constitutional Vitals: Temp Pulse Resp BP Pulse Ox 98.4 F 91 H 18 165/104 100 08/15/17 08:18 08/15/17 10:26 08/15/17 08:18 08/15/17 10:26 08/15/17 08:18 - Labs CBC & Chem 7: 08/15/17 05:11 08/15/17 05:11 Labs: Laboratory Results - last 24 hr 08/14/17 08/14/17 08/15/17 15:24 20:37 05:07 WBC RBC Hgb Hct MCV MCH MCHC RDW Plt Count Sodium Potassium Chloride Carbon Dioxide Anion Gap BUN Creatinine Estimated GFR BUN/Creatinine Ratio Glucose POC Glucose 151 H 146 H 93 Calcium 08/15/17 08/15/17 05:11 05:11 WBC 8.5 RBC 3.51 L Hgb 9.9 L Hct 30.5 MCV 87 MCH 28 MCHC 32 RDW 15.0 Plt Count 289 Sodium 139 Potassium 3.2 L Chloride 98.0 Carbon Dioxide 28 Anion Gap 16 BUN 48 H Creatinine 2.3 H Estimated GFR 26 BUN/Creatinine Ratio 21 Glucose 97 POC Glucose Calcium 8.6
--- NOTE | 2017-08-15 10:56 | Discharge Summary ---
Providers - Providers Date of Admission: 08/12/17 23:07 Attending physician: LUIZ HAMMOND MD 08/13/17 15:30 Consult to Physician [CONS] Routine Consulting Provider: KRYS IBRAHIM Reason For Exam: and[place] Place consult to:: renal Notified:: office Phone number called:: [phone] Was contact made?: Yes If yes, spoke with:: [email or web address] Time called:: 16:01 08/13/17 16:40 Consult to Physician [CONS] Routine Consulting Provider: QUINTON SMALLS Reason For Exam: Gastroenteritis with interatacble nausea and vomit Place consult to:: gi Notified:: office Phone number called:: [phone] Was contact made?: Yes If yes, spoke with:: danny Time called:: 16:58 Primary care physician: MATH INSTRUCTOR Hospitalization Reason for admission: chest pain Condition: Stable Hospital course: 54-year-old lady with a history of hypertension, hyperlipidemia, diabetes comes emergency room with complaints of chest pain started yesterday. Pain started on the right side of the neck radiating down to the epigastric area, she describes as sharp, unable to say how long it lasted for, intensity 5/10. She state that pain is worse at rest, better with activity. Admits to nausea vomiting, no palpitation, shortness of breath, diaphoresis. She has not taken any medication in the last 3 days because she has been fasting. patient continued to have persistent nausea and vomiting, GI was consulted and recommeded her symptoms improved and the patient is ready for discharge. stress test was done and was negative Discharge Diagnosis Hypertensive urgency Gastroenteritis with Persistent nausea and vomiting Chest pain * Secondary to GERD, [place] secondary to vasomotor nephropathy Hyperlipidemia Hypokalemia Diabetes type 2 Disposition: DC- TO HOME OR SELFCARE Time spent for discharge: 35 mins Core Measure Documentation - Palliative Care Palliative Care/ Comfort Measures: Not Applicable - Core Measures Any of the following diagnoses?: none - VTE Discharge Requirements Deep Vein Thrombosis/Pulmonary Embolism Present on Admission: No Exam - Physical Exam Narrative exam: Narrative exam: Gen. appearance: Patient lying in bed, no apparent distress but uncomfortable appearing HEENT: Normocephalic, atraumatic, pupils equally round and reactive to light, extraocular movement intact, and no sclericterus,. No JVD or thyromegaly or nodule,neck supple, no carotid bruit ,mucous membranes moist, no exudate or erythema Heart: S1, S2, regular rate and rhythm Lungs: Clear to auscultation bilaterally, breathing comfortable Abdomen: Positive bowel sounds, nontender, nondistended, no organomegaly Extremity: No edema, cyanosis, clubbing Skin: No rash, nodules, warm, dry Neuro: Oriented 3, cranial nerves II-12 intact, speech is fluent, motor and sensory intact - Constitutional Vitals: Temp Pulse Resp BP Pulse Ox 98.4 F 91 H 18 165/104 100 08/15/17 08:18 08/15/17 10:26 08/15/17 08:18 08/15/17 10:26 08/15/17 08:18 Plan Activity: advance as tolerated, fall precautions Diet: low cholesterol Special Instructions: record daily weights, record daily BP diary Follow up with: PRIMARY CAREMD [Primary Care Provider] - 3-5 Days FLORINA RUFFIN MD [Staff Physician] - 7 Days Prescriptions: Famotidine [Pepcid] 20 mg PO BID #60 tablet
[2017-08-15 15:45] VITALS: BP 131/77
== END 2017-08-15 15:30 | disposition home or self-care (01) | DRG 391 ==
LOC: ED 16:08 → 4A 23:07
PROVIDERS: ADMIT Internal Medicine; ATTEND Internal Medicine
DX: K21.9 Gastro-esophageal reflux disease without esophagitis (principal); N17.0 Acute kidney failure with tubular necrosis; I16.0 Hypertensive urgency; E11.9 Type 2 diabetes mellitus without complications; I10 Essential (primary) hypertension; E78.5 Hyperlipidemia, unspecified; K52.9 Noninfective gastroenteritis and colitis, unspecified; E87.6 Hypokalemia; Z90.710 Acquired absence of both cervix and uterus; Z82.49 Family history of ischemic heart disease and other diseases of the circulatory system; Z79.899 Other long term (current) drug therapy
CPT/HCPCS: 36415; 71046; 74018; 76770; 78452; 78582; 80048; 80053; 80061; 81001; 82088; 82550; 82553; 82570; 82962; 83690; 83880; 83930; 84156; 84300; 84484; 84550; 85025; 85027; 85379; 86038; 87076; 87086; 87186; 93005; 93010; 93017; 96365; 96366; 96375; 96376; 99291; A9502; A9540; A9558; C9113; J0360; J1650; J1815; J2270; J2405; J2785; J7030; J7050; Q0162